=== PATIENT | male | born 1950 | race Caucasian/White ===

== ENCOUNTER 2016-09-26 23:28 | Emergency (ER) | payer OTHER, MEDICARE ==
[~2016-09-26] VITALS: Ht 170.2 cm; Wt 83.9 kg
[~2016-09-26 23:28] MED LIST: ALLO100T PO; AMLO-110 PO; ATEN50TA PO; ATOR-24 PO; CHOL100027 PO; FENO134C2 PO; GLC5 PO; HYDR25TA4 PO; LISI40TA PO; METF1000 PO; SITA50TA PO; TRAM-10 PO; meloxicam PO
[2016-09-26 23:34] VITALS: TEMP 36.5; Ht 170.2 cm; Wt 83.9 kg
[2016-09-27] MEDS ORDERED: PROMETHAZINE HCL INJ 25 MG/ML 1 ML VIAL IM STA (00:10)
[2016-09-27] MEDS ORDERED: HYDROmorphone INJ 2 MG/ML SYR/VIAL IM STA (00:10)
--- NOTE | 2016-09-27 00:14 | EMERGENCY ROOM VISIT NOTE ---
History Report prepared by Maynor: Jim Mckeon Under the Supervision of: Dr. Kia Wong M.D. First contact with patient: 23:41 Chief Complaint: BACK PAIN Stated Complaint: BACK AND LOWER RT LEG PAIN History of Present Illness The patient is a 66 year old male who presents to the Emergency Room with complaints of constant back pain for the past four days. The patient states that he has a history of back pain due to a narrowing in the spine, and on 08/04 he had an injection in his spine which worked for two months. He states that four days ago the pain came back, and it was worse than it was before. The patient additionally is complaining of right leg pain. He denies any loss of bowels or bladder. The patient states that he called his PCP for pain medication similar to previous medication, however they did not give him any medication. He states that heat alleviates the pain, and standing makes the pain worse. He denies any recent falls or traumas. The patient has a history of diabetes and arthritis, and he states that he checks his blood sugar at home, and he does not use insulin. Source of History: patient Onset: four days ago Position: back Timing: constant Modifying Factors (Worsening): other (standing) Modifying Factors (Relieving): heat Note: Associated symptoms: Right leg pain Review of Systems See HPI for pertinent positives & negatives. A total of 10 systems reviewed and were otherwise negative. Past Medical & Surgical Medical Problems: (1) Benign hypertension (2) Calculus of kidney and ureter (3) Deep venous thrombosis (4) Diabetes mellitus (5) Dyslipidemia (6) Gout (7) right bicep tendon repair Family History Cancer Heart disease Social History Smoking Status: Never Smoker Alcohol Use: none Marital Status: Housing Status: lives with family Occupation Status: retired Current/Historical Medications Scheduled Allopurinol (Zyloprim), 1 TAB PO QAM Amlodipine (Norvasc), 5 MG PO QAM Atenolol (Tenormin), 1 TAB PO QAM Atorvastatin (Lipitor), 1 TAB PO QAM Cholecalciferol (Vitamin D 1000 Unit), 1,000 INTER.UNIT PO 2x week Fenofibrate (Tricor ), 134 MG PO QPM Glipizide (Glipizide), 5 MG PO BID Hydrochlorothiazide (Hctz), 1 TAB PO QAM Lisinopril (Zestril), 1 TAB PO QPM Metformin Hcl (Glucophage), 1 TAB PO BID Sitagliptin Phosphate (Januvia), 1 TAB PO DAILY [meloxicam], 1 TAB PO DAILY Scheduled PRN Oxycodone/Acetaminophen 5MG/325MG (Percocet 5MG/325MG), 1-2 TABS PO Q4H PRN for Pain Tramadol (Ultram), 50 MG PO Q4H PRN for Pain Allergies Coded Allergies: No Known Allergies (Verified , 09/27/16) Physical Exam Vital Signs Date Time Temp Pulse Resp B/P Pulse Ox O2 Delivery O2 Flow Rate FiO2 09/27/16 00:51 65 18 168/80 97 09/26/16 23:34 36.5 70 18 216/95 95 Room Air Physical Exam Vital signs reviewed. General: Well-appearing male, in no significant distress. HEENT: No scleral icterus, PERRLA, neck supple. Atraumatic. Cardiovascular: Regular rate and rhythm, no extra sounds. Pulmonary: Clear to auscultation bilaterally, normal work of breathing. Abdomen: Soft, nontender, nondistended, positive bowel sounds. Back: Mildly tender to palpation over the lumbar spine and the right iliac crest. Musculoskeletal: Atraumatic, no peripheral edema. Neurologic: Patient awake alert and oriented x 3, full strength in all 4 extremities. Cranial nerves 2 through 12 grossly intact. Skin: Warm, dry, no rash Medical Decision & Procedures Medications Administered Medications (Trade) Dose Ordered Sig/Yue Route Start Time Stop Time Status Last Admin Dose Admin Hydromorphone HCl (Dilaudid Inj) 2 mg NOW STAT IM 09/27/16 00:10 09/27/16 00:12 DC 09/27/16 00:18 2 MG Promethazine HCl (Phenergan Inj) 25 mg NOW STAT IM 09/27/16 00:10 09/27/16 00:12 DC 09/27/16 00:19 25 MG ED Course 2341: Past medical records reviewed. The patient was evaluated in room A2. A complete history and physical examination was performed. 0010: Phenergan Inj 25mg IM, Dilaudid Inj 2mg IM 0016: Upon reevaluation, the patient appeared to have improvement of his symptoms. I discussed findings with him. He verbalized agreement of the treatment plan. He was discharged home. Medical Decision Differential diagnosis: Etiologies such as musculoskeletal, disc herniation, fracture, aortic disease, metastatic disease, cord compression, discitis, infection, renal colic, gastrointestinal, acute exacerbation of chronic back pain, sciatica, cauda equina, as well as others were entertained. This patient was evaluated and appeared to be in significant discomfort. Patient was sitting up in a wheelchair on exam. He does have some tenderness along the right iliac crest posteriorly. Patient also has pain radiating down the leg. He was given 2 mg of IM Dilaudid and 25 mg of IM Phenergan. Steroids will be avoided at this time due to the patient's diabetes. He does take NSAIDs , he was advised to stop taking the meloxicam and Aleve together. Patient was discharged with a prescription for Percocet. He will follow-up with his physician this week for reevaluation and he has a pending pain management appointment. Without an injury or fall, I do not think additional images are warranted at this time. He will return to the ER for worsening of symptoms or any medical concerns. Impression Primary Impression: Lumbar radiculopathy, acute Scribe Attestation The scribe's documentation has been prepared under my direction and personally reviewed by me in its entirety. I confirm that the note above accurately reflects all work, treatment, procedures, and medical decision making performed by me. Departure Information Dispostion Home / Self-Care Prescriptions Oxycodone/Acetaminophen 5MG/325MG (PERCOCET 5MG/325MG) Tab 1-2 TABS PO Q4H Y for Pain, #30 TAB Prov: Kia Wong M.D. 09/27/16 Referrals Pierre Ryan M.D. (PCP) Forms HOME CARE DOCUMENTATION FORM, IMPORTANT VISIT INFORMATION Patient Instructions [facility] Additional Instructions Diagnosis: Acute lumbar radiculopathy Percocet 1-2 tabs every 6 hours as needed for severe pain. Continue meloxicam or Aleve as prescribed, do not take both drugs. Warm compresses and gentle stretching. Follow-up with physical therapy as previously directed. Follow-up with your physician this week for reevaluation. Return to the ER for worsening of symptoms or any medical concerns.
[2016-09-27] MEDS ORDERED: OXYC-57 PO ×2 (00:38→00:41)
[2016-09-27 00:51] VITALS: BP 168/80; PULSE 65; O2SAT 97
[2016-10-18] MEDS ORDERED: SITA50TA3 PO (08:57)
[2016-10-18] MEDS ORDERED: LISI40TA PO (08:57)
[2016-10-18] MEDS ORDERED: ASPI81TA28 PO (08:58)
[2016-10-18] MEDS ORDERED: NORCO PO (09:02)
[2016-10-18] MEDS ORDERED: SENNTAB23 PO (09:12)
== END 2016-09-27 00:52 | disposition home or self-care (01) ==
LOC: C.EDB 23:29 → C.EDA 09-27 00:52
DX: M54.16 Radiculopathy, lumbar region (principal); I10 Essential (primary) hypertension; E11.9 Type 2 diabetes mellitus without complications; E78.5 Hyperlipidemia, unspecified; M10.9 Gout, unspecified; Z87.442 Personal history of urinary calculi; Z86.718 Personal history of other venous thrombosis and embolism; Z79.899 Other long term (current) drug therapy; Z79.84 Long term (current) use of oral hypoglycemic drugs; Z80.9 Family history of malignant neoplasm, unspecified; Z82.49 Family history of ischemic heart disease and other diseases of the circulatory system

== ENCOUNTER → 2016-10-04 | Outpatient (CLI) | payer OTHER, MEDICARE ==
[~2016-10-04] MED LIST changes: +ASPI81TA28 PO; +NORCO PO; +OXYC-57 PO; +SENNTAB23 PO; +SITA50TA3 PO
--- NOTE | 2016-10-04 15:10 | DIAGNOSTIC IMAGING REPORT ---
MRI LUMBAR SPINE W/O CONTRAST CLINICAL HISTORY: Severe lower back pain TECHNIQUE: Sagittal and axial T1, T2 and STIR images were obtained. COMPARISON STUDY: 05/05/2016 OBSERVATIONS: The vertebral bodies and posterior elements appear intact. There is no abnormal bony signal present to suggest a marrow replacement process. Several focal fatty rests/hemangiomas are again visualized. L1-2: No disc protrusions or extrusions. No evidence of spinal canal or neural foraminal compromise. L2-3: No disc protrusions or extrusions. No evidence of spinal canal or neural foraminal compromise. L3-4: There is a mild circumferential disc bulge with a tiny left posterior lateral annular fissure. There is no significant spinal or foraminal stenosis. L4-5: There is a circumferential disc bulge, and small right foraminal disc protrusion. There is mild spinal stenosis and mild right-sided foraminal narrowing L5-S1: No disc protrusions or extrusions. No evidence of spinal canal or neural foraminal compromise. The conus medullaris and cauda equina appear normal. IMPRESSION: No significant change from the prior study. Disc bulge and small right foraminal disc protrusion at the L4-5 level. Mild L4-5 spinal stenosis and mild right-sided foraminal narrowing Electronically signed by: Pedro Luis Aguayo M.D. 10/04/2016 3:08 PM Dictated Date/Time: 10/04/2016 3:04 PM
== END | disposition home or self-care (01) ==
LOC: C.MRIBC 13:57
PROVIDERS: ATTEND Orthopaedic Surgery Orthopaedic Surgery of the Spine
DX: M48.06 Spinal stenosis, lumbar region (principal); M51.26 Other intervertebral disc displacement, lumbar region

== ENCOUNTER 2016-10-25 09:39 | Observation (INO) | payer OTHER, MEDICARE ==
[2016-10-18 09:04] VITALS: BMI 28.0
--- NOTE | 2016-10-18 09:37 | PAT Medication Instructions ---
Service Date Oct 18, 2016. Current Home Medication List Allopurinol (Zyloprim), 1 TAB PO QAM Amlodipine (Norvasc), 5 MG PO QAM Aspirin (Aspirin Ec), 81 MG PO QPM Atenolol (Tenormin), 1 TAB PO QPM Atorvastatin (Lipitor), 1 TAB PO QPM Cholecalciferol (Vitamin D 1000 Unit), 1,000 INTER.UNIT PO 2x week Fenofibrate (Tricor ), 134 MG PO QPM Glipizide (Glipizide), 5 MG PO BID Hydrochlorothiazide (Hctz), 1 TAB PO QAM Lisinopril (Zestril), 40 MG PO QPM Metformin Hcl (Glucophage), 1 TAB PO BID Sennosides-Docusate Sodium (Stool Softener), 1 TAB PO QAM Sitagliptin (Januvia), 50 MG PO QAM [Wolcott], 1 TAB PO PRN Medication Instructions For Your Scheduled Surgery - Hold the following medications 7 days prior to surgery per surgeon's instructions: Aspirin (Aspirin Ec), 81 MG PO QPM - Hold the following medications 48 hours prior to surgery: Metformin Hcl (Glucophage), 1 TAB PO BID - Hold the following medications 24 hours prior to surgery: Fenofibrate (Tricor ), 134 MG PO QPM Lisinopril (Zestril), 40 MG PO QPM - Hold the following medications the morning of surgery: Sitagliptin (Januvia), 50 MG PO QAM Glipizide (Glipizide), 5 MG PO BID Hydrochlorothiazide (Hctz), 1 TAB PO QAM Sennosides-Docusate Sodium (Stool Softener), 1 TAB PO QAM - Take the following medications the morning of surgery with a sip of water OTHERWISE NOTHING TO EAT OR DRINK AFTER MIDNIGHT: Allopurinol (Zyloprim), 1 TAB PO QAM Amlodipine (Norvasc), 5 MG PO QAM [Wolcott], 1 TAB PO PRN (may take if needed up to 4 hours prior to surgery) - Take the following medications as scheduled the night before surgery: Atenolol (Tenormin), 1 TAB PO QPM Atorvastatin (Lipitor), 1 TAB PO QPM Glipizide (Glipizide), 5 MG PO BID [Wolcott], 1 TAB PO PRN If you have any questions please call us at [phone] or [phone] or [phone]
[2016-10-18 10:15] LABS: BASO % 0.6 %; BASO ABS # 0.05 K/uL (0-0.2); COMPLETE YES; EOS % 2.8 %; HEMATOCRIT 50.1 % (42-52); IG% 0.9 %; LYMPH % 18.6 %; LYMPH ABS # 1.44 K/uL (1.2-3.4); MEAN CELL VOLUME 92.4 fL (80-100); MEAN CORPUSCULAR HEMOGLOBIN 30.8 pg (25-34); MEAN CORPUSCULAR HGB CONC 33.3 g/dl (32-36); MEAN PLATELET VOLUME 11.5 fL (7.4-10.4); MONO % 9.3 %; NEUT % 67.8 %; PLATELET COUNT 214 K/uL (130-400); RED BLOOD COUNT 5.42 M/uL (4.7-6.1); WHITE BLOOD COUNT 7.75 K/uL (4.8-10.8)
--- NOTE | 2016-10-18 10:15 | DIAGNOSTIC IMAGING REPORT ---
TWO VIEW CHEST CLINICAL HISTORY: Preoperative examination. FINDINGS: PA and lateral chest radiographs are compared to study dated 07/09/12. The heart is mildly enlarged and there is atherosclerotic calcification of the thoracic aorta. There are calcified mediastinal and hilar lymph nodes. The lungs and pleural spaces are clear. There is no pneumothorax. The skeletal structures appear osteopenic. Degenerative change is noted throughout the thoracic spine. IMPRESSION: No active disease in the chest. Electronically signed by: Joni Little M.D. 10/18/2016 10:14 AM Dictated Date/Time: 10/18/2016 10:13 AM
--- NOTE | 2016-10-24 09:44 | HISTORY & PHYSICAL EXAMINATION ---
DATE OF ADMISSION: 10/25/2016 CHIEF COMPLAINT: Presents with right lower extremity pain, difficulty. HISTORY OF PRESENT ILLNESS: Katia is a very pleasant 66-year-old male. He is established with the group, seeing us with a new problem of nerve root irritation from the spine. Most of the pain seems to be stemming from the L4, L5 and S1 nerve roots to the right side. The pain seems to transverse over the e quadriceps indicative of L3-L4 nerve root pathology and then it does travel below his knee indicative of possible L5-S1 nerve root pathology. He is currently taking Advil and Percocet for this pain. Pain is worse walking and standing. Sitting helps relieve some of the pain. He did have a recent MRI scan which demonstrated a small disc protrusion lumbar spine at L5-S1 level to the right. PAST MEDICAL HISTORY: Includes heart disease, diabetes, rheumatoid arthritis, high blood pressure. PAST SURGICAL HISTORY: Includes biceps tendon repair in his right arm, partial knee replacement and left eye correction. ALLERGIES: No allergies to medications. CURRENT MEDICATIONS: List includes fenofibrate, amlodipine, atenolol, allopurinol, hydrochlorothiazide, lisinopril, atorvastatin, glipizide, metformin and Januvia. FAMILY MEDICAL HISTORY: Positive for heart disease, stroke. Negative for diabetes, blood clots, DVTs and cancer. SOCIAL HISTORY: He is . Does not use alcohol or tobacco, moderately active lifestyle. REVIEW OF SYSTEMS: MUSCULOSKELETAL: Positive for joint pain. ENDOCRINE: Positive for diabetes. PHYSICAL EXAMINATION: CONSTITUTIONAL: Alert and oriented x3, appropriately dressed for his age. VITAL SIGNS: He is 67 inches, 180 pounds. CARDIOVASCULAR: Brisk capillary refill in distal extremities. Normal S1, S2, no S3 was auscultated. RESPIRATORY: Equal and bilateral breath sounds. No rales, rhonchi or wheezing auscultated. GASTROINTESTINAL: Abdomen is soft, nontender. No organomegaly percussed. INTEGUMENTARY: No skin rashes, lesions or swelling. MUSCULOSKELETAL EXAMINATION: He has a slight weakness of the quadriceps in the right which would be graded 4/5 compared to 5/5 on the right. He has slight loss of sensation on the right, anterior quadriceps as well. He has some slight muscle atrophy of the quadriceps muscle on the right. He uses a cane for support. He has a difficult time coming into an upright position. IMAGES: We reviewed an MRI. MRI does demonstrate a disc protrusion at L4-5 lumbar segment. Mostly affects the right neural foramen. ASSESSMENT AND DIAGNOSES: Disc protrusion of the lumbar spine, nerve root irritation and compression at the L4-5 lumbar level. PLAN: At this time, we are going to preop him for surgery. We will preop him for a laminectomy discectomy at the L4-5 lumbar level. There is a possiblity that we will use [employer] is the lumbar segment is unstable. We did talk about the procedure itself, recovery time, anticipated outcomes. We did provide him with a back brace for support for postop. We provided him with postop pain medication as well. Will follow him up in the office in approximately 10-14 days postop for suture removal and evaluation. MILO
[2016-10-25] VITALS (7 sets, daily range): BP systolic 147–206; BP diastolic 74–91; PULSE 60–95; TEMP 36.6–37.1; O2SAT 95–99; Ht 170.2 cm; Wt 83.5 kg
[~2016-10-25] VITALS: Ht 170.2 cm; Wt 83.5 kg
[~2016-10-25 09:39] MED LIST changes: +CEFAZOLIN 2000 MG/60 ML D5W 60 ML IV SCH; +LACTATED RINGER'S 1000ML 1,000 ML IV SCH; +NSS 1000ML IV SCH; -OXYC-57 PO; -SITA50TA PO; -TRAM-10 PO; -meloxicam PO
[2016-10-25] MEDS ORDERED: NURSING VERBAL MED ORDER ONE (11:15)
[2016-10-25] MEDS ORDERED: FENTANYL CITRATE INJ 50 MCG/1 ML 2 ML VIAL ONE (11:41)
[2016-10-25] MEDS ORDERED: NEOSTIGMINE METHYLSULFATE 5 MG/5 ML SYR ONE (11:42)
[2016-10-25] MEDS ORDERED: DEXAMETHASONE SOD INJ 4 MG/ML VIAL ONE (11:42)
[2016-10-25] MEDS ORDERED: ROCURONIUM BROMIDE 10 MG/ML 5 ML VIAL ONE (11:42)
[2016-10-25] MEDS ORDERED: GLYCOPYRROLATE INJ 0.2 MG/ML VIAL ONE (11:42)
[2016-10-25] MEDS ORDERED: LIDOCAINE HCL 2% 2 ML VIAL (20MG/ML) ONE (11:42)
[2016-10-25] MEDS ORDERED: LARYING-O-JET KIT (LTA) ONE ×2 (11:42)
[2016-10-25] MEDS ORDERED: PROPOFOL IV EMULSION 10 MG/ML 20 ML VIAL IV ONE (11:42)
[2016-10-25] MEDS ORDERED: ONDANSETRON INJ 2 MG/ML 2 ML VIAL ONE (11:42)
[2016-10-25] MEDS ORDERED: MIDAZOLAM HCL 1 MG/ML 2ML VIAL ONE (11:42)
[2016-10-25] MEDS ORDERED: LACTATED RINGER'S 1000ML 1,000 ML IV PRN (13:25)
[2016-10-25] MEDS ORDERED: ONDANSETRON INJ 2 MG/ML 2 ML VIAL IV PRN ×2 (13:30→15:45)
[2016-10-25] MEDS ORDERED: GELATIN SPONGE SZ 100 ONE (13:30)
[2016-10-25] MEDS ORDERED: HYDROmorphone INJ 1 MG/ML SYR IV PRN ×2 (13:30→15:45)
[2016-10-25] MEDS ORDERED: BACITRACIN 50000 UNIT VIAL ONE (13:31)
[2016-10-25] MEDS ORDERED: VANCOMYCIN HCL 1000MG/20ML VIAL ONE (13:31)
[2016-10-25] MEDS ORDERED: BUPIVACAINE/EPINEPHRINE 0.5% MPF 1:200,000 30 ML VIAL ONE (13:31)
[2016-10-25] MEDS ORDERED: THROMBIN FOR SOLN 20000 UNIT KIT ONE (13:31)
--- NOTE | 2016-10-25 13:54 | History & Physical Bridge Note ---
H&P Re-Evaluation Bridge Note: I have examined the patient, reviewed the History & Physical and in the interval since the performance of the History & Physical I have noted the following changes of clinical significance: Possible instrumentation L4-5
--- NOTE | 2016-10-25 15:30 | DIAGNOSTIC IMAGING REPORT ---
INTRAOPERATIVE LUMBAR SPINE SINGLE VIEW CLINICAL HISTORY: L4-5 LAMINECTOMY COMPARISON STUDY: No previous studies for comparison. FINDINGS: 4.7 seconds of fluoroscopic time was utilized. A single intraoperative fluoroscopic spot images provided for interpretation. This reveals a metallic probe projected over the posterior elements at the L4-5 level. IMPRESSION: Intraoperative localization radiograph as described above. Electronically signed by: Pedro Luis Aguayo M.D. 10/25/2016 3:28 PM Dictated Date/Time: 10/25/2016 3:27 PM
--- NOTE | 2016-10-25 15:43 | [facility] Post Operative Brief Note ---
Immediate Operative Summary Operative Date Oct 25, 2016. Pre-Operative Diagnosis disc protrusion of lumbar spine, nerve root irritation and compression at L4-5 lumbar level Post-Operative Diagnosis disc protrusion of lumbar spine, nerve root irritation and compression at L4-5 lumbar level Procedure(s) Performed L4-L5 Laminectomy Surgeon Dr. Juanito Mejia Utilities Service Investigator Surgeon(s) George Tadeo PA-C Estimated Blood Loss 100ml Findings stenosis Specimens none per surgeon Dr. Juanito Mejia Complication(s) None Disposition Recovery Room / PACU
[2016-10-25] MEDS ORDERED: HYDROmorphone INJ 2 MG/ML SYR/VIAL IV PRN (15:45)
[2016-10-25] MEDS ORDERED: LORAZEPAM 1 MG TAB PO PRN (15:45)
[2016-10-25] MEDS ORDERED: METOCLOPRAMIDE HCL INJ 5 MG/ML 2 ML VIAL IV PRN (15:45)
[2016-10-25] MEDS ORDERED: MAGNESIUM HYDROXIDE SUSP 30 ML UDC PO PRN (15:45)
[2016-10-25] MEDS ORDERED: ACETAMINOPHEN 325 MG TAB PO PRN (15:45)
[2016-10-25] MEDS ORDERED: LORAZEPAM INJ 1 MG in SYRINGE 0 ML IV PRN (15:45)
[2016-10-25] MEDS ORDERED: PROMETHAZINE HCL INJ 12.5 MG in SODIUM CHLORIDE 0.9% 50ML 50 ML IV PRN (15:45)
[2016-10-25] MEDS ORDERED: IV FLUIDS COMPLETED PRN (16:00)
[2016-10-25] MEDS: FENTANYL CITRATE INJ 50 MCG/1 ML 2 ML VIAL IV PRN ×2 (16:07→16:12)
--- NOTE | 2016-10-25 17:27 | Anesthesiology Progress Note ---
Anesthesia Post Op Note Date & Time Oct 25, 2016 at 17:26 Vital Signs Pain Intensity: 3 Vital Signs Past 12 Hours Date Time Temp Pulse Resp B/P (MAP) Pulse Ox O2 Delivery O2 Flow Rate FiO2 10/25/16 16:50 36.3 63 16 162/74 97 Nasal Cannula 2 10/25/16 16:40 36.3 64 16 152/68 98 Nasal Cannula 2 10/25/16 16:30 63 16 155/70 100 Nasal Cannula 2 10/25/16 16:20 58 16 147/77 100 Nasal Cannula 2 10/25/16 16:10 58 16 160/71 100 Nasal Cannula 2 10/25/16 16:00 61 16 169/76 100 Mask 10 10/25/16 15:50 63 16 171/73 100 Mask 10 10/25/16 15:40 36.8 59 16 159/77 100 Mask 10 10/25/16 09:55 37.1 95 20 206/91 (129) 95 Room Air Notes Mental Status: alert / awake / arousable, participated in evaluation Pt Amnestic to Procedure: Yes Nausea / Vomiting: adequately controlled Pain: adequately controlled Airway Patency, RR, SpO2: stable & adequate BP & HR: stable & adequate Hydration State: stable & adequate Anesthetic Complications: no major complications apparent
--- NOTE | 2016-10-25 17:41 | OPERATIVE REPORT ---
DATE OF OPERATION: 10/25/2016 PREOPERATIVE DIAGNOSES: Stenosis of the spine L4-L5 and disk herniation L4-L5 lumbar. POSTOPERATIVE DIAGNOSIS: Same. PROCEDURES: Include a laminectomy, discectomy L4-L5 lumbar spine, foraminotomy, partial facetectomy. SURGEON: Dr. Mejia. CLIENT DEVELOPMENT MANAGER: George Tadeo PA-C COMPLICATIONS: Zero. BLOOD LOSS: 100 mL. DESCRIPTION OF PROCEDURE: The patient was taken to the operating room and general intubated anesthetic provided to the patient. Glynn catheter provided to the patient. Turned prone, scrubbed, prepped and draped sterile. I made a skin incision, fascial incision over the L4-L5 interspace. We marked this with C-arm guidance, we cut down and did a laminectomy down to the L4-L5 interval. We did foraminotomies, partial facetectomies, first on the left, then on the right. On the right hand side we had a disk herniation, we retracted the dura and the nerve root in medial direction, performed a formal discectomy with various sized pituitary rongeurs. I probed each and every foramen many times, I thought I was clear of obstruction. I felt it was appropriately decompressed and we did not want to injure the patient. We then irrigated, closed in layers with #1 Vicryl, 2-0 and 3-0 nylon over a Hemovac drain and vancomycin powder. The patient then returned supine, extubated to PACU stable. Sponge and needle count correct at the close of the procedure. No complications. I attest to the content of the Intraoperative Record and any orders documented therein. Any exception s are noted below.
[2016-10-25] MEDS: OXYCODONE/ACETAMINOPHEN 5-325 TAB PO PRN ×2 (19:39→20:43)
[2016-10-25] MEDS: SODIUM CHLORIDE 0.9% 1000ML 1,000 ML IV SCH (19:40)
[2016-10-25] MEDS: CEFAZOLIN IV 2,000 MG in DEXTROSE 5% 50ML 50 ML IV SCH (19:46)
[2016-10-25] MEDS: LISINOPRIL 40 MG TAB PO SCH (20:45)
[2016-10-25] MEDS: ATORVASTATIN 40 MG TAB PO SCH (20:46)
[2016-10-25] MEDS: ASPIRIN 81 MG ECTAB PO SCH (20:47)
[2016-10-25] MEDS: METFORMIN HCL 500 MG TAB PO SCH (20:47)
[2016-10-25] MEDS: DEXAMETHASONE INJ 10 MG in SYRINGE 0 ML IV SCH (21:38)
[2016-10-25] MEDS: FENOFIBRATE - ORDER AWAITING ACTION SCH (23:08)
[2016-10-26] VITALS (7 sets, daily range): BP systolic 137–191; BP diastolic 75–81; PULSE 62–78; TEMP 36.5–36.7; O2SAT 94–99
[2016-10-26] MEDS: OXYCODONE/ACETAMINOPHEN 5-325 TAB PO PRN ×3 (00:33→19:08)
[2016-10-26] MEDS: CEFAZOLIN IV 2,000 MG in DEXTROSE 5% 50ML 50 ML IV SCH ×2 (03:56→12:14)
[2016-10-26] MEDS: SODIUM CHLORIDE 0.9% 1000ML 1,000 ML IV SCH (03:56)
[2016-10-26] MEDS: DEXAMETHASONE INJ 10 MG in SYRINGE 0 ML IV SCH ×5 (05:09→22:53)
[2016-10-26] MEDS ORDERED: BISACODYL 5 MG TABEC PO PRN (06:00)
[2016-10-26] MEDS ORDERED: BISACODYL 10 MG SUPP PR PRN (06:00)
--- NOTE | 2016-10-26 08:06 | PROGRESS NOTE ---
DATE: 10/26/2016 DATE: 10/26/2016. SUBJECTIVE: Moderate complaints of pain, controlled with p.o. medications. Denies any confusion, chest pain, shortness of breath. Extremities intact and without pain. OBJECTIVE: Vital signs stable. Lab work not indicated. ASSESSMENT: Status post lumbar spinal stenosis surgery performed yesterday. DISPOSITION: Will get him up and ambulate today. Home later this evening or tomorrow morning. Instructions have been given from the office.
[2016-10-26] MEDS: POLYETHYLENE (MIRALAX) 17 GM PACK PO SCH (09:00)
[2016-10-26] MEDS: ALLOPURINOL 100 MG TAB PO SCH (09:01)
[2016-10-26] MEDS: METFORMIN HCL 500 MG TAB PO SCH ×2 (09:01→20:49)
[2016-10-26] MEDS: DOCUSATE SODIUM/SENNA 50/8.6MG TAB PO SCH (09:02)
[2016-10-26] MEDS: HYDROCHLOROTHIAZIDE 25 MG TAB PO SCH (09:02)
[2016-10-26] MEDS: AMLODIPINE BESYLATE 5 MG TAB PO SCH (09:02)
[2016-10-26] MEDS: SITAGLIPTIN 25 MG TAB PO SCH (09:03)
[2016-10-26] MEDS: FENOFIBRATE - ORDER AWAITING ACTION SCH (09:03)
[2016-10-26] MEDS ORDERED: NURSING VERBAL MED ORDER ONE (17:00)
[2016-10-26] MEDS ORDERED: FENOFIBRATE 134 MG TAB PO SCH (21:00)
[2016-10-26] MEDS: LISINOPRIL 40 MG TAB PO SCH (21:46)
[2016-10-26] MEDS: ATORVASTATIN 40 MG TAB PO SCH (21:47)
[2016-10-26] MEDS: ASPIRIN 81 MG ECTAB PO SCH (21:47)
[2016-10-27 03:33] VITALS: BP 132/74
[2016-10-27] MEDS: DEXAMETHASONE INJ 10 MG in SYRINGE 0 ML IV SCH (06:02)
[2016-10-27] MEDS: OXYCODONE/ACETAMINOPHEN 5-325 TAB PO PRN ×2 (06:03→10:31)
[2016-10-27 07:20] VITALS: BP 175/82; PULSE 66; TEMP 36.6; O2SAT 97
--- NOTE | 2016-10-27 08:14 | Discharge Instructions ---
Discharge Instructions Date of Service Oct 27, 2016. Admission Reason for Admission: Spinal Stenosis Discharge Discharge Diagnosis / Problem: stenosis Discharge Goals Goal(s): Improve function Activity Recommendations Activity Limitations: as noted below Lifting Limitations: until after follow-up appointment Exercise/Sports Limitations: until after follow-up appointment May Resume Sexual Activity: after follow-up appointment Shower/Bathe: keep incision dry . Instructions / Follow-Up Instructions / Follow-Up MEDICATIONS: Please take your prescriptions as instructed at your pre-op appointment. SPECIAL CARE: The following information is intended to answer some of the common questions and concerns regarding your surgery. Each patient is an individual and receives individual counselling throughout the course of treatment, from diagnosis to surgery all the way through recovery. What follows is not an exhaustive list, but should be a useful guide to some of the common questions and concerns patients have regarding their surgeries. These are not provided to keep you from calling us; rather, they give you something accurate and concrete to reference as you recover from your procedure. If you need us, we are available to you. As always, if you are not sure about something, call us at [phone]. MEDICAL EMERGENCIES: For these conditions, call 911 or go to your local hospital-based Emergency Department - not [facility] or equivalent. * Paralysis * Severe chest pain or difficulty breathing * Swelling or redness of either leg Spine procedures can be rather complex and though complications are rare, they do occur. In such cases, effective advice regarding emergency situations cannot always be addressed over the telephone. You may be referred to the emergency department for more effective management of your problem. Activity Limitations: It is important to give your body time to heal, so please limit your activities : * In general, don't do anything that moves your spine too much. You should avoid contact sports, twisting or heavy lifting while you recover. * 5-10 pounds is all you should attempt to lift. * You should not plan on driving for approximately 3 weeks and you should avoid traveling more than 30-45 minutes at a time. Longer trips should be broken down with walking breaks spaced appropriately. * Physical therapy is not usually required. * Walking and good posture practices will help you recover and regain your function. * Avoid straining or sudden changes in position. * In general, the goal is to take it easy and recover. Don't cause any new problems. Just relax. Showers: * Do not take a bath, use a Jacuzzi or hot tub or otherwise submerge your incision. * It is usually safe to take a shower 4-5 days after your surgery. * Your incision does not require any special creams or ointments. * Simply clean it with soap and water, dry and re-dress with a clean bandage afterwards. Incision: * Keep incision clean, dry and protected until your first follow-up appointment. * Some amount of drainage and redness is normal. Any drainage should be fairly clear and not have a foul odor. * If you feel anything is wrong or you have excessive drainage, please call us. * Your stitches and jackie will be removed 10-14 days after your surgery. At the time of your first post-op visit. * Neck surgeries are typically closed with a suture underneath the skin. The steri-strips over the incision should be maintained until we see you in the office. Bracing: * You may be provided with a back or neck brace to encourage good posture and prevent injury. It will remind you not to do too much as you heal and will alert others to the fact that you have had a surgery. * Back braces may be removed for showers and when you are resting at home. They must be worn when you are walking around for any period of time or for travel. * For neck surgery, you will likely be provided with two cervical collars. The soft collar ([place] or foam rubber) is worn most commonly throughout the day and while sleeping. The plastic collar (provided at the hospital) is for showering/bathing. * Except while eating, collars should remain in place. More specifically, bracing is provided for a purpose and should be worn. * Please obtain your brace or collars prior to your operation and bring them to the hospital with you on the day of surgery. * You should also bring your collars to your post-op appointment with Dr. Mejia. You should always take good care of your body and practice healthy habits, especially following surgery. You should: * Follow your doctor's treatment plan * Sit and stand properly with good posture (ears over shoulders, shoulders over hips) Don't slouch * Learn to lift correctly * Exercise regularly (low-impact aerobic exercise is especially good, but check with your doctor first) * Generally, be up and walking for 5-10 minutes at a time at least 3-4 times per day from the day you get home * Increasing walking to tolerance until you can walk for 20-30 minutes at a time * Attain and maintain a healthy body weight * Eat healthy foods ( a well-balanced, low-fat diet rich in fruits and vegetables) and get enough calcium * Avoid excessive use of alcohol When to call our office - If you notice any of the following: * Increased pain not relieve by pain medicine * Fevers greater then 100 degrees F, chills or flu symptoms * Increased redness around incision * Drainage from the incision that is not clear * Any foul smelling drainage * Swelling or fluid collection beneath the skin Miscellaneous: * In the hospital, you may be given a walker or cane for support while walking. These are temporary needs and are intended to prevent injuries due to falls. You may discontinue them when you feel strong and steady enough on your feet. * Sleep in a comfortable position. We find that many patients find a lounge chair or recliner with several pillows to be beneficial in the early post-operative period. * The support stockings should be used for 7-10 days and may be discontinued when you are back to walking more and conducting usual household activities. No problem is insignificant. We are here to help you and get you well. Contact us at [phone]. Definitions: Foraminotomy: If part of the disc or a bone spur (osteophyte) is pressing on a nerve as it leaves the vertebra (through an exit called the foramen), a foraminotomy may be done. Otomy means "to make an opening." A foraminotomy is making the opening of the foramen larger, so the nerve can exit without being compressed. Laminotomy: Similar to the foraminotomy, a laminotomy makes a larger opening, this time in your bony plate protecting your spinal canal and spinal cord (the lamina). The lamina may be pressing on your nerve, so the surgeon may make more room for the nerves using a laminotomy. Laminectomy: Sometimes, a laminotomy is not sufficient. The surgeon may need to remove all or part of the lamina. This procedure is called a laminectomy. This can often be done at many levels without any harmful effects. Current Hospital Diet Patient's current hospital diet: Diabetes Type 2 Diet Discharge Diet Recommended Diet: Diabetes Type 2 Diet Procedures Procedures Performed: L4-L5 Laminectomy Pending Studies Studies pending at discharge: no Medical Emergencies . Who to Call and When: Medical Emergencies: If at any time you feel your situation is an emergency, please call 911 immediately. . Non-Emergent Contact Non-Emergency issues call your: Surgeon . "Provider Documentation" section prepared by Juanito Mejia. . VTE Core Measure Inpt VTE Proph given/why not?: Treatment not indicated
--- NOTE | 2016-10-27 08:55 | DISCHARGE SUMMARY ---
DATE OF DISCHARGE: 10/27/2016. SUBJECTIVE: Moderate complaints of pain, no shortness of breath or chest pain. OBJECTIVE: Vital signs stable, alert, oriented. ASSESSMENT: Status post reconstructive spine surgery and decompression. DISPOSITION: Includes instructions, precautions, education on the chart and from the office. Discharged home today. Prescriptions on his chart. Follow-up appointment in 2 weeks. Careful with bending, stooping, lifting.
[2016-10-27] MEDS: SITAGLIPTIN 25 MG TAB PO SCH (09:09)
[2016-10-27] MEDS: HYDROCHLOROTHIAZIDE 25 MG TAB PO SCH (09:09)
[2016-10-27] MEDS: ALLOPURINOL 100 MG TAB PO SCH (09:09)
[2016-10-27] MEDS: DOCUSATE SODIUM/SENNA 50/8.6MG TAB PO SCH (09:09)
[2016-10-27] MEDS: POLYETHYLENE (MIRALAX) 17 GM PACK PO SCH (09:10)
[2016-10-27] MEDS: AMLODIPINE BESYLATE 5 MG TAB PO SCH (09:10)
[2016-10-27] MEDS: METFORMIN HCL 500 MG TAB PO SCH (09:47)
[2016-10-27 09:52] VITALS: BP 175/82; PULSE 66; TEMP 36.6; O2SAT 97
== END 2016-10-27 11:08 | disposition home or self-care (01) ==
LOC: C.ACU 09:39 → C.3E 11:02 → ENRESERV 16:30
PROVIDERS: ADMIT Orthopaedic Surgery Orthopaedic Surgery of the Spine; ATTEND Orthopaedic Surgery Orthopaedic Surgery of the Spine
DX: M48.06 Spinal stenosis, lumbar region (principal); M51.26 Other intervertebral disc displacement, lumbar region; E11.9 Type 2 diabetes mellitus without complications; M06.9 Rheumatoid arthritis, unspecified; Z98.890 Other specified postprocedural states; Z96.659 Presence of unspecified artificial knee joint; Z82.49 Family history of ischemic heart disease and other diseases of the circulatory system; Z82.3 Family history of stroke